=== PATIENT | female | born 1985 | race Caucasian/White ===

== ENCOUNTER → 2017-12-05 09:59 | Outpatient (CLI) | payer OTHER, SELFPAY ==
[2017-12-05 10:47] LABS: Appearance Urine UA CLEAR; Bilirubin Urine UA NEGATIVE (NEGATIVE); Color Urine UA YELLOW; Glucose Urine UA NEGATIVE (Normal); Ketones Urine UA NEGATIVE (NEGATIVE); Leukocyte Esterase Urine UA TRACE (NEGATIVE); Nitrite Urine UA Negative (Negative); Occult Blood Urine UA 1+ (Negative); Protein Urine UA NEGATIVE (Negative); Urobilinogen Urine UA 0.2 E.U./dL (0.2); pH Urine UA 6.5 (4.5-8.0)
[2017-12-05 10:51] LABS: Add Manual Diff / Slide Review NO; Basophils Percent Auto 0.2 % (0-2); Eosinophils Percent Auto 0.4 % (2-4); Hematocrit 45.3 % (36-46); Hemoglobin 15.7 g/dL (12.0-16.0); Lymphocytes Percent Auto 19.5 % (25-40); Mean Corpuscular HGB Conc 34.7 % (30-36); Mean Corpuscular Hemoglobin 30.6 PG (26-34); Mean Corpuscular Volume 88.2 fL (80-100); Monocytes Percent Auto 6.1 % (3-14); Neutrophils Absolute Auto 5900 /uL (3000-5900); Neutrophils Percent Auto 73.8 % (50-75); Platelet Count 208 X10^3/uL (150-400); Red Blood Cell Count 5.13 X10^6/uL (4.0-5.2); Red Cell Distribution Width 12.5 % (11.6-14.8); White Blood Cell Count 7.9 X10^3/uL (4.5-11.0)
[2017-12-05 10:52] LABS: Hemoglobin A1C% w Est Avg Glu 5.1 % (4.0-6.0)
[2017-12-05 11:05] LABS: Bacteria Urine Few (2-10); RBC Urine 1-5/HPF (0-5/HPF); Squamous Epithelial Cell Urine 1-5 /HPF; WBC Urine 1-5/HPF (0-5/HPF)
[2017-12-05 11:20] LABS: Glucose 84 mg/dL (70-100)
[2017-12-05 12:01] LABS: Hepatitis B Surface Antigen NEGATIVE s/c (NEGATIVE); Rubella Antibody IgG 15.6 IU/mL (>15)
[2017-12-05 12:07] LABS: HIV 1 and 2 Antibody NEGATIVE (NEGATIVE); Hep C Virus Ab w/Reflex Quant NEGATIVE s/c (NEGATIVE)
[2017-12-09 14:07] LABS: HSV 2 IGG AB < 0.90 index (< 0.90); HSV1IGG 8.58 index (< 0.90)
[2017-12-12 08:40] LABS: Rapid Plasma Reagin NON-REACTIVE
== END ==
DX: Z34.02 Encounter for supervision of normal first pregnancy, second trimester (principal); Z3A.08 8 weeks gestation of pregnancy
CPT/HCPCS: 80055; 81003; 81015; 82947; 83036; 86695; 86696; 86703; 86787; 86803; 86850; 86900; 86901; 87086

== ENCOUNTER → 2018-01-02 17:01 | Outpatient (CLI) | payer OTHER, SELFPAY | DX: Z3A.12 12 weeks gestation of pregnancy (principal); Z36.0 Encounter for antenatal screening for chromosomal anomalies; Z36.82 Encounter for antenatal screening for nuchal translucency | CPT/HCPCS: 36415; 84163; 84702 ==

== ENCOUNTER → 2018-01-26 17:02 | Outpatient (CLI) | payer OTHER, SELFPAY | DX: Z34.82 Encounter for supervision of other normal pregnancy, second trimester (principal) | CPT/HCPCS: 36415; 86336 ==

== ENCOUNTER → 2018-03-27 15:53 | Outpatient (CLI) | payer OTHER, SELFPAY ==
--- NOTE | 2018-03-27 15:54 | DI.US.S_ITS ---
PROCEDURE: US OB >= 14 WEEKS FETUS INDICATIONS: Anatomy Scan OUTSIDE/PRIOR DATING DATA: Last menstrual period (LMP): Not available. LMP-based estimated date of delivery (HUAN): Not available. First dating scan (date and location): 12/12/17, by Dr. Garces. Estimated date of delivery (HUAN) from first dating scan: 07/17/18, plus or -5 days, by Dr. Garces. TECHNIQUE: Real-time scanning was performed of the fetus, with image documentation and biometric measurements. Endovaginal scanning: Not necessary for this study COMPARISON: None. FINDINGS: General: A single living intrauterine gestation is present. Presentation: Vertex. Placenta: Placental position is posterior, without previa. Amniotic fluid index: 16.5 cm, normal range is 5-24 cm. heart rate: 143 beats per minute. Maternal cervical canal: 4.8 cm long. Normal lower limit is 2.5 cm. biometrics: Biparietal diameter: 6.0 cm, 24 weeks 4 days Head circumference: 22.3 cm, 24 weeks 2 days Abdominal circumference: 19.5 cm, 24 weeks 1 day Femur length: 4.4 cm, 24 weeks 4 days Estimated gestational age from initial scan: 24 weeks 0 days Composite gestational age from present scan: 24 weeks 3 days Estimated weight and percentile: 684 g, 57th percentile Measurement variability for biometric dating: +/- 7 days from 14 weeks to 15 weeks 6 days gestation, +/- 10 days from 16 weeks to 21 weeks 6 days gestation, +/- 2 weeks from 22 weeks to 27 weeks 6 days gestation, +/- 3 weeks for 28 weeks gestation or later. weight reference: 4500 g or EFW >90/95% is considered macrosomia or large for gestational age. EFW <10% is small for gestational age. EFW 5% or less is considered intra-uterine growth restriction. Anatomic survey: Neuro: Ventricles are non-dilated at less than 10 mm. Cisterna magna is normal at 3-11 mm. Cerebellum is normal in size and morphology. Nuchal skin fold: Normal at less than 6 mm between 14-21 weeks gestational age. Face: Nose and lips, facial profile are normal. Spine: No evidence for spina bifida. Heart: 4-chambered heart is present, with normal ventricular outflow tracts. Diaphragm: Diaphragm is intact. Stomach: Left-sided stomach is present. Kidneys: No hydronephrosis. Normal is less than 5 mm in 2nd trimester, less than 7 mm in 3rd trimester. Cord: 3-vessel cord has orthotopic insertion. Bladder: Normal in size. Extremities: All 4 extremities identified. IMPRESSION: Appropriate interval growth, no anomalies seen. D. delivery date is projected to be centered on 07/17/18, plus or -5 days, based on the first OB ultrasound performed by Dr. Garces. Dictated by: Collin Rasmussen M.D. on 03/27/2018 at 17:09 Approved by: Collin Rasmussen M.D. on 03/27/2018 at 17:13
== END ==
DX: Z34.92 Encounter for supervision of normal pregnancy, unspecified, second trimester (principal); Z36.89 Encounter for other specified antenatal screening; Z3A.24 24 weeks gestation of pregnancy
CPT/HCPCS: 76811

== ENCOUNTER → 2018-04-29 12:15 | Outpatient (CLI) | payer OTHER, SELFPAY ==
[2018-04-29 13:45] LABS: Hemoglobin 12.5 g/dL (12.0-16.0)
[2018-04-29 14:14] LABS: GTT (PREG) 1 Hour PP 50gm Dose 116 mg/dL (76-139)
== END ==
DX: Z34.82 Encounter for supervision of other normal pregnancy, second trimester (principal); Z3A.21 21 weeks gestation of pregnancy
CPT/HCPCS: 36415; 82950; 85014; 85018

== ENCOUNTER → 2018-06-23 17:08 | Outpatient (CLI) | payer OTHER, SELFPAY ==
[2018-06-24 13:04] LABS: Strep Grp B PCR NEG for Grp B Strep
== END ==
DX: Z34.83 Encounter for supervision of other normal pregnancy, third trimester (principal); Z3A.36 36 weeks gestation of pregnancy
CPT/HCPCS: 87653

== ENCOUNTER 2018-07-21 02:28 | Inpatient (IN) | payer OTHER, SELFPAY ==
[2018-07-21] MEDS: LACTATED RINGERS 1,000 ML 1000 ML IV (03:30)
[2018-07-21 03:37] LABS: Add Manual Diff / Slide Review NO; Basophils Absolute Auto 0 /uL (0-100); Basophils Percent Auto 0.2 % (0-2); Eosinophils Absolute Auto 0 /uL (0-450); Eosinophils Percent Auto 0.5 % (2-4); Hematocrit 37.4 % (36-46); Hemoglobin 12.7 g/dL (12.0-16.0); Lymphocytes Absolute Auto 1800 /uL (1100-4500); Lymphocytes Percent Auto 19.9 % (25-40); Mean Corpuscular HGB Conc 33.9 % (30-36); Mean Corpuscular Hemoglobin 29.8 PG (26-34); Mean Corpuscular Volume 88.1 fL (80-100); Monocytes Absolute Auto 700 /uL (0-900); Monocytes Percent Auto 7.5 % (3-14); Neutrophils Absolute Auto 6500 /uL (1500-7000); Neutrophils Percent Auto 71.9 % (50-75); Platelet Count 163 X10^3/uL (150-400); Red Blood Cell Count 4.25 X10^6/uL (4.0-5.2); Red Cell Distribution Width 13.6 % (11.6-14.8); White Blood Cell Count 9.1 X10^3/uL (4.5-11.0)
[2018-07-21] MEDS: OXYTOCIN 10 UNIT/ML VIAL IM (07:20)
--- NOTE | 2018-07-21 07:46 | PM.OBPRVD ---
Delivery date: 07/21/18 Intrapartal events: None Delivery augmentation: rupture of membranes Delivery monitor: external FHT and external uterine Route of delivery: L&D Laceration Description: Perineal - 2nd Degree Delivery repair: chromic Estimated blood loss (mL): 200 Anesthesia type: Epidural Complications: None Narrative: Patient is a 32-year-old white female two para one at term who presented in active labor at 2:30 a.m.. She was 5 cm dilated. She received an epidural at 4:30 a.m.. She was complete by 7:00 a.m.. The patient pushed 3 times and delivered a live-born male infant with scores of nine at 1 min and nine at 5 min in good condition. The placenta delivered spontaneously. Cord had three vessels. Estimated blood loss was 200 cc. Second-degree tear was repaired with two 0 chromic suture in the normal fashion. There were no cervical or vaginal tears. Plan for aftercare: Routine
[2018-07-21 09:17] VITALS: BP 123/62
[2018-07-21] MEDS: IBUPROFEN 600 MG TABLET PO (21:12)
[2018-07-22] MEDS: DERMOPLAST SPRAY 20% 60 ML 1 SPRAY TOP (00:08)
[2018-07-22 08:59] LABS: Hematocrit 32.6 % (36-46); Hemoglobin 11.3 g/dL (12.0-16.0)
--- NOTE | 2018-07-22 09:02 | PM.OBDS.1 ---
Discharge Providers Date of admission: 07/21/18 02:28 Discharge Date: 07/22/18 Consults: 07/21/18 08:17 Consult to [employer] Routine Comment: Discharge provider: Boyd Garces MD Summary Date Patient Seen: 07/22/18 Time Patient Seen: 09:03 Procedures: Spontaneous vaginal delivery Repair of second-degree tear Hospital Course: The patient is a 32-year-old white female two now para two presented in active labor. Patient received epidural anesthesia. She went rapidly to complete and membranes were ruptured. With three pushes she delivered spontaneously a live born male with scores of nine at 1 min and nine at 5 min in good condition. The weighed 9 lb 2 oz. Placenta delivered spontaneously. The cord had three vessels. The estimated blood loss was 200 cc. Post delivery the patient has done well. She has remains afebrile stable vital signs and has been progressively element and ambulated. Peripartum Data Delivery Method: Natural Vaginal Laceration description: Perineal - 2nd Degree Procedures: Repair of laceration complications: none Status at Discharge Cognitive/behavioral status at discharge: oriented Functional status at discharge: independent ambulation Overall status at discharge: patient is back to baseline Time Spent with Patient Total time spent providing and/or coordinating discharge services: Objective Labs Result Diagrams: 07/22/18 08:32 Labs: Laboratory Results - last 24 hr 07/22/18 08:32 Hgb 11.3 L Hct 32.6 L Exam Narrative Exam Narrative: Fundus U minus three Perineum without ecchymosis or edema Lochia scant Discharge Plan Discharge Plan Patient Disposition: Home Discharge Med Rec/Prescriptions Prescriptions: New Dermoplast (with menthol) 20-0.5 % Aerosol 1 spray topical Q1HR PRN (Reason: perineal pain) Qty: 56 RF: 0 ibuprofen 600 mg Tablet 600 mg PO Q6HR PRN (Reason: Pain, Mild (1-3)) Qty: 20 RF: 0 Nzt-P-Uhcltd Cream 1 applic topical PRN PRN (Reason: Tenderness) Qty: 30 RF: 0 Continued PNV [id number] acid 28 mg iron- 800 mcg tablet PO RF: 0 azelastine 0.15 % (205.5 mcg) spray,non-aerosol 1 spray NASAL BID PRN (Reason: sinus congestion) Qty: 30 RF: 0 loratadine [Claritin Liqui-Gel] 10 MG capsule 10 mg PO QDAYP PRN (Reason: Nasal Congestion) Qty: 0 RF: 0 Follow up/Referrals: Boyd Garces MD [Physician] - 1 Month Provider Discharge Instructions Diet: Diet as Tolerated Diet comment: Regular Activity: Routine Skin/Wound/Dressing Care Report to your healthcare provider any signs of infection, such as:: chills, fever, increased pain, unusual drainage and unusual redness Discharge Data Attending Provider: Boyd Garces Admit Date/Time: 07/21/18 02:28
--- NOTE | 2018-07-22 09:05 | P.DS_ITS ---
Discharge Providers Date of admission: 07/21/18 02:28 Discharge Date: 07/22/18 Consults: 07/21/18 08:17 Consult to Regional Coordinator Routine Comment: Discharge provider: Boyd Garces MD Summary Date Patient Seen: 07/22/18 Time Patient Seen: 09:03 Procedures: Spontaneous vaginal delivery Repair of second-degree tear Hospital Course: The patient is a 32-year-old white female two now para two presented in active labor. Patient received epidural anesthesia. She went rapidly to complete and membranes were ruptured. With three pushes she delivered spontaneously a live born male with scores of nine at 1 min and nine at 5 min in good condition. The weighed 9 lb 2 oz. Placenta delivered spontaneously. The cord had three vessels. The estimated blood loss was 200 cc. Post delivery the patient has done well. She has remains afebrile stable vital signs and has been progressively element and ambulated. Peripartum Data Delivery Method: Natural Vaginal Laceration description: Perineal - 2nd Degree Procedures: Repair of laceration complications: none Status at Discharge Cognitive/behavioral status at discharge: oriented Functional status at discharge: independent ambulation Overall status at discharge: patient is back to baseline Time Spent with Patient Total time spent providing and/or coordinating discharge services: Objective Labs Result Diagrams: 07/22/18 08:32 Labs: Laboratory Results - last 24 hr 07/22/18 08:32 Hgb 11.3 L Hct 32.6 L Exam Narrative Exam Narrative: Fundus U minus three Perineum without ecchymosis or edema Lochia scant Discharge Plan Discharge Plan Patient Disposition: Home Discharge Med Rec/Prescriptions Prescriptions: New Dermoplast (with menthol) 20-0.5 % Aerosol 1 spray topical Q1HR PRN (Reason: perineal pain) Qty: 56 RF: 0 ibuprofen 600 mg Tablet 600 mg PO Q6HR PRN (Reason: Pain, Mild (1-3)) Qty: 20 RF: 0 Grg-L-Gvjncv Cream 1 applic topical PRN PRN (Reason: Tenderness) Qty: 30 RF: 0 Continued PNV no.[id number] acid 28 mg iron- 800 mcg tablet PO RF: 0 azelastine 0.15 % (205.5 mcg) spray,non-aerosol 1 spray NASAL BID PRN (Reason: sinus congestion) Qty: 30 RF: 0 loratadine [Claritin Liqui-Gel] 10 MG capsule 10 mg PO QDAYP PRN (Reason: Nasal Congestion) Qty: 0 RF: 0 Follow up/Referrals: Boyd Garces MD [Physician] - 1 Month Provider Discharge Instructions Diet: Diet as Tolerated Diet comment: Regular Activity: Routine Skin/Wound/Dressing Care Report to your healthcare provider any signs of infection, such as:: chills, fever, increased pain, unusual drainage and unusual redness Discharge Data Attending Provider: Boyd Garces Admit Date/Time: 07/21/18 02:28
[2018-07-22] MEDS: DOCUSATE 250 MG CAPSULE PO (09:06)
[2018-07-22 09:25] VITALS: BP 109/70; PULSE 65; RESP 16; TEMP 36.8
[2018-07-22 09:51] VITALS: BP 109/70; PULSE 65; RESP 16; TEMP 36.8
[2018-07-22] MEDS: MEASLES,MUMPS,RUBELLA VACC/PF 0.5 ML VIAL SUBCUT (10:49)
[2018-07-22] MEDS: LANOLIN OINT 7 GM 1 APPLIC TOP (10:51)
== END 2018-07-22 11:17 | disposition home or self-care (01) | DRG 807 ==
DX: O70.1 Second degree perineal laceration during delivery (principal); Z37.0 Single live birth; Z3A.40 40 weeks gestation of pregnancy
CPT/HCPCS: 01967; 36415; 59050; 59400; 85014; 85018; 85025; 86850; 86900; 86901; G0379; J2590; J3010

== ENCOUNTER → 2020-04-14 12:46 | Outpatient (CLI) | payer OTHER, SELFPAY ==
--- NOTE | 2020-04-14 12:47 | DI.US.S_ITS ---
PROCEDURE: US PELVIC COMPLETE INDICATIONS: cannot find IUD strings TECHNIQUE: Real-time scanning was performed of the pelvic organs, with image documentation. Additional endovaginal scanning was necessary due to incomplete visualization of the adnexal and endometrial structures by transabdominal scanning. COMPARISON: None. FINDINGS: Transabdominal scanning: Limited scanning through the kidneys shows no hydronephrosis. No pathologic free abdominal or pelvic fluid. Endovaginal scanning: Uterus: Uterus is normal in size at 8.3 x 4.3 x 6.4 cm. The endometrium measures 7.0 mm in combined thickness. IUD in expected position. Ovaries: Ovaries normal bilaterally, each containing several follicular cyst. No adnexal masses seen. IMPRESSION: IUD in expected central position. Dictated by: Nils Flaherty [facility] Interpreted: Slim eBll MD on 04/14/2020 at 17:00 Approved by: Slim Bell M.D. on 04/14/2020 at 17:24
== END ==
PROVIDERS: PCP Family Medicine; Referring Provider Family Medicine; Visit Provider Family Medicine
DX: Z30.431 Encounter for routine checking of intrauterine contraceptive device (principal)
CPT/HCPCS: 76830; 76856

== ENCOUNTER → 2022-03-01 09:11 | Outpatient (CLI) | payer OTHER, SELFPAY ==
--- NOTE | 2022-03-01 09:12 | DI.US.S_ITS ---
PROCEDURE: US PELVIC COMPLETE INDICATIONS: CHECK IUD PLACEMENT TECHNIQUE: Real-time scanning was performed of the pelvic organs, with image documentation. Additional endovaginal scanning was necessary due to incomplete visualization of the adnexal and endometrial structures by transabdominal scanning. COMPARISON: [facility], , US PELVIC COMPLETE, 04/14/2020, 13:17. FINDINGS: Uterus: 8 x 4.4 x 5.5 cm. Low lying IUD. Endometrium is 3 mm. Ovaries: Right-sided volume is 7 cc. Left-sided volume is 11 cc. Less than 12 follicles seen per ovary. Other: No pathologic fluid. IMPRESSION: Low lying IUD in the lower uterine segment and cervix. We strive to produce accurate, complete, and clear reports of imaging services. To assist us in improving patient care, this report was composed using standard report templates and voice recognition software. Therefore, it may contain abnormal punctuation, insertions and/or omissions. Occasional wrong-word or sound-alike substitutions may occur. Though we review the report and make efforts to correct it, we do recommend that the report be read carefully in proper context to recognize any text inaccuracies. Dictated by: Khanh Galeas M.D. on 03/01/2022 at 9:45 Approved by: Khanh Galeas M.D. on 03/01/2022 at 9:47
== END ==
PROVIDERS: PCP Family Medicine; Referring Provider Family Medicine; Visit Provider Family Medicine
DX: N92.1 Excessive and frequent menstruation with irregular cycle (principal); Z30.431 Encounter for routine checking of intrauterine contraceptive device
CPT/HCPCS: 76830; 76856

== ENCOUNTER → 2023-10-27 13:22 | Outpatient (CLI) | payer OTHER, SELFPAY ==
[2023-10-27 14:04] LABS: Add Manual Diff / Slide Review NO; Basophils Absolute Auto 0 /uL (0-100); Basophils Percent Auto 0.2 % (0-2); Eosinophils Absolute Auto 100 /uL (0-450); Eosinophils Percent Auto 1.4 % (2-4); Lymphocytes Absolute Auto 2100 /uL (1100-4500); Lymphocytes Percent Auto 29.3 % (25-40); Mean Corpuscular HGB Conc 34.1 % (30-36); Mean Corpuscular Hemoglobin 29.5 PG (26-34); Mean Corpuscular Volume 86.5 fL (80-100); Monocytes Absolute Auto 400 /uL (0-900); Monocytes Percent Auto 5.8 % (3-14); Neutrophils Absolute Auto 4500 /uL (1500-7000); Neutrophils Percent Auto 63.3 % (50-75); Platelet Count 265 X10^3/uL (150-400); Red Blood Cell Count 4.74 X10^6/uL (4.0-5.2); Red Cell Distribution Width 12.2 % (11.6-14.8); White Blood Cell Count 7.2 X10^3/uL (4.5-11.0)
[2023-10-27 14:17] LABS: Hemoglobin A1C% w Est Avg Glu 5.5 % (4.0-6.0)
[2023-10-27 14:32] LABS: Alanine Aminotransferase 18 IU/L (<35); Albumin 4.3 g/dL (3.5-5.0); Albumin Globulin Ratio 1.5 (1.0-2.8); Alkaline Phosphatase 49 U/L (38-126); Aspartate Aminotransferase 24 IU/L (14-36); BUN Creatinine Ratio 14.1 (6-22); Bilirubin Total 0.4 mg/dL (0.2-1.3); Blood Urea Nitrogen 10 mg/dL (7-17); Calcium 9.2 mg/dL (8.4-10.2); Carbon Dioxide 25 mmol/L (22-32); Chloride 106 mmol/L (98-107); Estimated Glomerular Filt Rate > 60 mL/min (>60); Globulin 2.9 g/dL (1.7-4.1); Glucose 113 mg/dL (70-100); HEMOLYSIS < 15 (0-50); Potassium 4.3 mmol/L (3.4-5.1); Sodium 136 mmol/L (137-145); Total Protein 7.2 g/dL (6.3-8.2)
[2023-10-27 14:59] LABS: TSH w/ Reflex to FT4 0.75 uIU/mL (0.47-4.68)
== END ==
PROVIDERS: PCP Student in an Organized Health Care Education/Training Program; Referring Provider Student in an Organized Health Care Education/Training Program; Visit Provider Student in an Organized Health Care Education/Training Program
DX: R53.83 Other fatigue (principal)
CPT/HCPCS: 36415; 80053; 83036; 84443; 85025